=== PATIENT | female | born 1970 | race African-American/Black ===

== ENCOUNTER 2017-06-03 12:56 | Outpatient (CLI) | payer OTHER ==
--- NOTE | 2017-06-10 12:17 | MMO ---
BILATERAL SCREENING MAMMOGRAM: Date: 06/03/17 COMPARISON: 11/25/12. HISTORY: Screening mammography. FINDINGS: This patient's mammogram was interpreted with the assistance of computer-aided detection. Scattered fibroglandular densities are present. There is no dominant mass, architectural distortion, or concerning microcalcifications. IMPRESSION: BIRADS 1: Negative Annual screening mammography recommended. POS: [facility]
== END 2017-06-03 12:57 | disposition home or self-care (01) ==
LOC: SCSMAMMO 12:56
PROVIDERS: ATTEND Internal Medicine Rheumatology
DX: Z12.31 Encounter for screening mammogram for malignant neoplasm of breast (principal)
CPT/HCPCS: 77067